=== PATIENT | male | born 1985 | race Caucasian/White ===

== ENCOUNTER 2021-06-20 23:45 | Emergency (ER) | payer OTHER ==
[~2021-06-20] VITALS: Ht 175.3 cm; Wt 89.4 kg
--- NOTE | 2021-06-20 23:50 | NUR ---
ER at bedside examining patient.
[2021-06-20 23:58] VITALS: BP_SYST 153
[2021-06-21] MEDS ORDERED: IBUPROFEN 800 MG TABLET PO ONE
--- NOTE | 2021-06-21 00:10 | NUR ---
PT ARRIVED TO ER AFTER A SLIP AND FALL TODAY. -KO. PT IS COMPLAINING OF RIGHT HAND PAIN AFTER FALLING ON IT. PT STATES PAIN IS 4/10 NOW BUT CAN GO UP TO 10/10 AT TIMES. PT IS A&OX4 AND HAS NO OTHER COMPLAINTS
--- NOTE | 2021-06-21 01:50 | NUR ---
xray at bedside
[2021-06-21] MEDS ORDERED: IBUP-1970 PO (01:57)
--- NOTE | 2021-06-21 02:15 | NUR ---
Patient given written and verbal discharge instructions and verbalizes understanding. ER MD discussed with patient the results and treatment provided. Patient in stable condition. ID arm band removed. Rx of ibuprofen given. Patient educated on pain management and to follow up with PMD. Pain Scale 3/10. Opportunity for questions provided and answered. Medication side effect fact sheet provided.
[2021-06-21 02:25] VITALS: BP_SYST 142
== END 2021-06-21 02:25 | disposition home or self-care (01) ==
LOC: SED 23:45
DX: S62.306A Unspecified fracture of fifth metacarpal bone, right hand, initial encounter for closed fracture (principal); Z79.899 Other long term (current) drug therapy; W01.198A Fall on same level from slipping, tripping and stumbling with subsequent striking against other object, initial encounter; Y93.89 Activity, other specified; Y92.89 Other specified places as the place of occurrence of the external cause; Y99.8 Other external cause status
CPT/HCPCS: 99284